=== PATIENT | female | born 1975 ===

== ENCOUNTER 2023-06-16 14:18 | Emergency (ER) | payer SELFPAY ==
[2023-06-16 14:56] LABS: BASOPHILS ABSOLUTE AUTO 0.04 10^3/uL (0.00-0.10); BASOPHILS PERCENT AUTO 0.3 % (0.0-1.0); EOSINOPHILS ABSOLUTE AUTO 0.24 10^3/uL (0.10-0.30); EOSINOPHILS PERCENT AUTO 1.7 % (1.0-3.0); HEMATOCRIT 42.8 % (37.0-47.0); HEMOGLOBIN 13.8 g/dL (12.0-16.0); IMMATURE GRAN ABSOLUTE AUTO 0.04 10^3/uL (0.00-0.50); IMMATURE GRAN PERCENT AUTO 0.3 % (0.0-5.0); LYMPHOCYTES ABSOLUTE AUTO 2.48 10^3/uL (1.00-4.00); LYMPHOCYTES PERCENT AUTO 17.1 % (20.0-40.0); MEAN CORPUSCULAR HEMOGLOBIN 28.3 pg (27.0-31.0); MEAN CORPUSCULAR HGB CONC 32.2 g/dL (32.0-36.0); MEAN CORPUSCULAR VOLUME 87.7 fL (82.0-92.0); MEAN PLATELET VOLUME 10.3 fL (7.4-10.4); MONOCYTES ABSOLUTE AUTO 1.35 10^3/uL (0.10-0.80); MONOCYTES PERCENT AUTO 9.3 % (2.0-8.0); NEUTROPHILS ABSOLUTE AUTO 10.38 10^3/uL (2.50-7.00); NEUTROPHILS PERCENT AUTO 71.3 % (50.0-70.0); PLATELET COUNT,PLT 325 10^3/uL (150-400); RED BLOOD CELL COUNT 4.88 10^6/uL (3.80-5.50); WHITE BLOOD CELL COUNT,WBC 14.53 10^3/uL (5.00-10.00)
[2023-06-16 15:10] LABS: ANION GAP 14.1 mmol/L (5-15); CALCIUM 8.9 mg/dL (8.7-10.3); CREATININE 0.58 mg/dL (0.51-1.17); EST CRCL DRUG DOSING (CG) 99.19 mL/min; POTASSIUM,K 3.1 mmol/L (3.5-5.1)
[2023-06-16 15:14] LABS: LACTIC ACID 1.8 mmol/L (0.4-2.0)
[2023-06-16] MEDS ORDERED: VANCOmycin 1 GM/200 ML 1 GM in Premix Bag 1 BAG IV ONE (16:00)
[2023-06-16] MEDS ORDERED: HYDROmorphone 1 MG/ML Syringe IVPUSH ONE (16:02)
[2023-06-16] MEDS ORDERED: Sodium Chloride 0.9% 100 ML ONE (16:07)
[2023-06-16] MEDS ORDERED: Sodium Chloride 0.9% 100 ML IV SCH (16:20)
== END 2023-06-16 19:00 ==
LOC: KA.ED 14:18
DX: L03.213 Periorbital cellulitis (principal); H05.011 Cellulitis of right orbit; J45.909 Unspecified asthma, uncomplicated; E11.9 Type 2 diabetes mellitus without complications; E78.00 Pure hypercholesterolemia, unspecified; I10 Essential (primary) hypertension; Z88.0 Allergy status to penicillin; Z88.5 Allergy status to narcotic agent; Z79.82 Long term (current) use of aspirin
CPT/HCPCS: 70486; 80048; 83605; 85025; 96365; 96367; 96375; 99285; J1170; J3370; J3490; Q3014; 99284